=== PATIENT | female | born 1945 | race Caucasian/White ===

== ENCOUNTER → 2022-06-08 | Outpatient (CLI) | payer BC, MEDICARE ==
[2022-06-08 10:35] LABS: INR 0.9 (<1.2); Partial Thromboplastin Time 23.3 sec (22.0-30.0); Prothrombin Time 9.9 sec (9.0-12.0)
[2022-06-08 18:05] LABS: HCT 42.7 % (37.2-46.3); HGB 13.3 g/dL (12.0-15.0); MCH 28.3 pg (27.0-32.0); MCHC 31.1 g/dL (32.0-37.0); MCV 90.9 fL (80.0-97.0); Mean Platelet Volume 12.3 fL (9.5-12.2); NRBC Per 100 WBC 0 /100 WBCS (0.0-0.0); Platelet Count 362 X 10*3/uL (140-440); RDW 14.1 % (11.5-14.5); WBC 9.12 X 10*3/uL (4.50-10.00)
[2022-06-08 18:08] LABS: Appearance,Urine Clear (Clear); Bilirubin,Urine Negative (Negative); Blood,Urine Negative (Negative); Color,Urine Dark Yellow (Yellow); Ketones,Urine Negative (Negative); Nitrite,Urine Negative (Negative); PH, Urine 7.5 (5.0-8.0); Specific Gravity,Urine 1.018 (1.001-1.030); Urobilinogen,Urine 0.2 (0.2,1.0)
[2022-06-08 18:12] LABS: African American GFR (CKD) 107.5 (60.0-200.0); Albumin 4.5 g/dL (3.8-4.9); Albumin/Globulin Ratio 1.52 (1.60-3.17); Anion Gap 11.9 mmol/L (10.00-18.00); BUN/Creat Ratio 28.68 Ratio (12.00-20.00); Blood Urea Nitrogen 15.6 mg/dL (9.0-27.0); Calcium 9.9 mg/dL (8.7-10.3); Carbon Dioxide 27.3 mmol/L (20.0-27.5); Non-African American GFR(CKD) 92.7 (60.0-200.0); Potassium 3.9 mmol/L (3.5-5.5); Total Bilirubin 0.3 mg/dL (0.30-1.20); Total Protein 7.5 g/dL (6.2-8.2)
[2022-06-08 18:38] LABS: Bacteria,Urine Trace /HPF (None Seen)
== END | disposition home or self-care (01) ==
LOC: LABPAT 09:27
PROVIDERS: ATTEND Orthopaedic Surgery
DX: Z01.812 Encounter for preprocedural laboratory examination (principal); M16.12 Unilateral primary osteoarthritis, left hip
CPT/HCPCS: 80053; 81001; 85027; 85610; 85730; 87070; 93005

== ENCOUNTER 2022-06-13 10:11 | Day surgery (SDC) | payer BC, MEDICARE, OTHER ==
[2022-06-08 12:49] VITALS: BMI 33.3
[~2022-06-13 10:11] MED LIST: ACETAMINOPHEN TAB 500 MG TAB PO PRN; GABAPENTIN 300 MG CAP PO PRN; HYDROmorphone 0.5 MG/0.5 ML SYRINGE IVP PRN; LIDOCAINE 1% (10MG/ML) FOR IV START INTRADERMA PRN; MELOXICAM 7.5 MG TAB PO PRN; MIDAZOLAM 2 MG/2 ML VIAL IV PRN; ONDANSETRON 4 MG/2 ML VIAL IVP ONE; TRANEXAMIC ACID IN NACL,ISO-OS 1,000 MG in SALINE 1 100ML.BAG IVPB PRN
[2022-06-13] MEDS: LACTATED RINGERS 1,000 ML IV SCH (10:45)
[2022-06-13] MEDS: DEXAMETHASONE SOD PHOSPHATE 4 MG/ML 1 ML VIAL IV ONE ×2 (11:08→15:44)
--- NOTE | 2022-06-13 11:15 | P.ANPRN ---
Procedure Note - Anesthesia - Nerve Block Performed Left Anselmo Single Time Out Performed: Yes Date of Procedure: 06/13/22 Procedure Start Time: 11:03 Procedure Stop Time: 11:10 Location of Patient: PreOp Indication: Requested by Surgeon Specifically requested for management of pain by DrAinsley: Jayme Barahona Sedation Type: Sedate with meaningful contact maintained Preparation: Sterile Prep Position: Supine Needle Types: Pajunk Needle Gauge: 21 Ultrasound used to visualize needle placement: Yes Ultrasound used to observe medication spread: Yes Injectate: 0.5% Ropivacaine (see comment for volume) (30 ml + 4mg dexamethasone) Blood Aspirated: No Pain Paresthesia on Injection Noted: No Resistance on Injection: Normal Image Stored and Saved: Yes Events: Uneventful and Well Tolerated
[2022-06-13] MEDS ORDERED: HYDROmorphone 0.5 MG/0.5 ML SYRINGE IVP PRN ×3 (11:37)
[2022-06-13] MEDS ORDERED: MAGNESIUM HYDROXIDE 2,400 MG/10 ML CUP PO PRN (11:37)
[2022-06-13] MEDS ORDERED: ONDANSETRON 4 MG/2 ML VIAL IVP PRN (11:37)
[2022-06-13] MEDS ORDERED: NALOXONE 0.4 MG/ML 1 ML VIAL IV PRN (11:37)
[2022-06-13] MEDS ORDERED: HYDROcodone/APAP 7.5-325MG 1 EACH TAB PO PRN (11:41)
[2022-06-13] MEDS ORDERED: fentaNYL (PF) 50 MCG/ML 2 ML AMP ONE (11:46)
[2022-06-13] MEDS ORDERED: DEXAMETHASONE SOD PHOSPHATE 4 MG/ML 1 ML VIAL ONE (11:46)
[2022-06-13] MEDS ORDERED: ROPIVACAINE 5 MG/ML 30 ML VIAL ONE (11:46)
[2022-06-13] MEDS ORDERED: TRANEXAMIC ACID IN NACL,ISO-OS 1,000 MG/100 ML BAG ONE (11:46)
[2022-06-13] MEDS ORDERED: PHENYLEPHRINE-0.9% NACL SYG 1,000 MCG/10 ML SYRINGE ONE (11:46)
[2022-06-13] MEDS ORDERED: MIDAZOLAM 2 MG/2 ML VIAL ONE (11:46)
[2022-06-13] MEDS ORDERED: PROPOFOL 10 MG/ML 20 ML VIAL IV ONE (11:46)
[2022-06-13] MEDS ORDERED: ceFAZolin 1,000 MG in SODIUM CHLORIDE 0.9% 1,000 ML IRRIGATION ONE (11:51)
[2022-06-13] MEDS ORDERED: ROPIVACAINE 5 MG/ML 30 ML VIAL MISCELLANE ONE ×2 (12:22→12:59)
[2022-06-13] MEDS ORDERED: LACTATED RINGERS 1,000 ML IV ONE (12:56)
--- NOTE | 2022-06-13 13:05 | P.OP ---
Date of Procedure: 06/13/22 Preoperative Diagnosis: Severe osteoarthritis left hip Postoperative Diagnosis: Severe osteoarthritis left hip Procedure(s) Performed: Left total arthroplasty with a direct anterior approach Implants: [employer] Polarstem standard size 2 [employer] R3, 3 hole hemispherical acetabular shell, 48 mm [employer] Reflection 6.5 mm cancellus screw, 20 mm 2 [employer] R3, XLPE 20 acetabular liner [employer]hew Oxinium femoral head 32 m, +4 All components were press-fit. The articulation is Oxinium on polyethylene. Anesthesia: spinal Surgeon: Jayme Barahona Credit Collections Specialist #1: Latasha Burgos Estimated Blood Loss (ml): 400 Pathology: other (Femoral head) Condition: stable Disposition: PACU Indications for Procedure: After failure of conservative treatment we discussed the surgical and nonsurgical treatment options at length. Patient wishes to proceed with a total hip arthroplasty with a direct anterior approach. Complications specific to this procedure were discussed at length, including but not limited to infection, leg length discrepancy, dislocation, nerve injury, and fracture. Covid-19 was also discussed at length with the patient, and they are aware of the current policies and procedures. The patient was given the option of delaying surgery, but they elect to proceed knowing these risks. Patient is aware of all these complications and informed consent was obtained Operative Findings: The operative findings are consistent with severe osteoarthritis of the left hip Description of Procedure: The patient was seen and evaluated in the preoperative area and the consent was reviewed. The operative site was marked with a skin marker. The patient verified the procedure and operative site. A VANDANA block was placed by ravin hinkle in the preoperative area. The patient was then brought to the operating room and given preoperative antibiotics intravenously. 1 g of Tranexamic acid was also given intravenously. A spinal anesthetic was administered by the anesthesia department. The patient was then placed on the Latham table with the bony prominences well-padded. The hip area was then prepped with a ChloraPrep solution and draped in the usual sterile fashion. A universal timeout was then performed, which confirmed the patient's name, surgical site, ALLERGIES, and procedure being performed on the consent. Next the incision site was located at 1 cm distal and 4 cm lateral to the anterior superior iliac spine. The skin and subcutaneous tissues were sharply incised. Incision was carefully dissected down to the fascia overlying the tensor fascia juan manuel muscle. This fascia was then incised in line with the muscle fibers. Care was taken to stay laterally in order to avoid injuring the lateral femoral cutaneous nerve. Next, using blunt finger dissection, the tensor fascia juan manuel muscle was dissected off its investing fascia. The muscle was then carefully retracted laterally with a cobra retractor over the lateral neck of the femur. Next, the circumflex vessels were identified and cauterized using the Aquamantis device. The anterior hip capsule was then exposed. The capsule was then opened and an inverted T fashion. The retractors were then placed intracapsularly. The retractors were maintained intracapsular throughout the procedure. The proximal femur was then visualized. Fluoroscopic x-rays were then taken in order to evaluate the preoperative leg lengths. A small amount of traction was placed on the leg. The femoral neck was then osteotomized at the appropriate level above the lesser trochanter. A small wedge of bone was then removed from the remaining femoral head. Next, using a corkscrew the femoral head was removed from the acetabulum. On gross visual inspection, the femoral head had complete loss of articular cartilage and multiple periarticular osteophytes. The femoral head was then measured. Attention was then turned to the acetabulum. The acetabulum was exposed and any remaining labrum was excised. Sequential reaming of the acetabulum was performed using fluoroscopic guidance until there was a good bed of bleeding cancellus bone. When the appropriate size was reached, a trial was then placed. The position and fit of the trial was checked with fluoroscopy. The trial was then removed. Then, using fluoroscopic guidance, the final implant was impacted at 20 of anteversion and 40 of abduction, and fully seated in the acetabulum. 2 screws were then placed in the acetabulum. Again fluoroscopy was used to check position of the screws. Next, the liner was then impacted, with a 20 elevated liner located in the anterior superior quadrant. Component locking was confirmed. Attention was then directed to the femur. With the aid of the Latham table, the femur was externally rotated to approximately 130, extended, and adducted under the opposite leg. A side hook was then placed under the proximal femur, and the side hook elevator was used to elevate the proximal femur while releasing the capsule. Retractors were then placed. A capsular release was performed, as well as a release of the conjoined tendon, which afforded excellent visualization of the proximal femur. Next, a box osteotome was used to lateralize the proximal femur. A kiss setter hand was then used to locate the femoral canal. Sequential broaching was then performed with appropriate size which afforded excellent fixation in the proximal femur. A trial was then placed with appropriate head and neck, and the hip was gently reduced with the aid of the Latham table. Fluoroscopy was then used to check position of the components, as well as to evaluate the leg lengths and offset. The leg lengths and offset were measured as closely as possible to ensure stability of the hip. The hip was then gently dislocated and the trials were then removed. Final implants were then impacted and the hip was again reduced. Final fluoroscopic x-rays confirmed that the components were in anatomic position. The leg lengths and offset were measured and were found to coincide with the trial measurements. The hip was also taken through range of motion, and found to be stable. The hip was then copiously irrigated with antibiotic solution with pulsatile lavage. The hip was then irrigated with Irrisept solution. The soft tissues were then injected with a ropivacaine solution. A second dose of 1 g of Tranexamic acid was also given intravenously. The fascia was then closed with 2-0 strata fix suture. The subcutaneous tissue was closed with 3-0 Vicryl. The subcuticular tissue was closed with 3-0 strata fix suture. The skin was then closed with Exofin skin glue. After the glue and dried, and Optifoam silver impregnated dressing was applied. The patient was then transferred to the recovery room in stable condition. The dental office assistant GINA Garcia was required due to the complexity of surgery, and the need for skilled operating room surgical technician for positioning, draping, exposure, retraction, and closure of the wound.
[2022-06-13] MEDS ORDERED: SODIUM CHLORIDE 0.9% 1,000 ML IV ONE (14:40)
[2022-06-13] MEDS: SODIUM CHLORIDE 0.9% 1,000 ML IV SCH (15:44)
--- NOTE | 2022-06-13 16:06 | XR ---
EXAMINATION TYPE: XR Hip Limited LT, XR Hip Limited LT DATE OF EXAM: 06/13/2022 COMPARISON: NONE HISTORY: 76-year-old female anterior total left hip replacement FINDINGS: Images showing placement of left total hip arthroplasty for underlying severe degenerative change, po ssibly sequela of AVN. FLUOROSCOPY Fluoroscopy time of 38 seconds was used during left hip total arthroplasty. 4 image/s document/s the procedure. IMPRESSION: Intraoperative fluoroscopy as above.
[2022-06-13] MEDS: HYDROcodone/APAP 7.5-325MG 1 EACH TAB PO PRN ×2 (17:01→23:10)
[2022-06-13] MEDS ORDERED: SENNOSIDES-DOCUSATE SODIUM 1 EACH TAB PO SCH (21:00)
[2022-06-13] MEDS: ASPIRIN 325 MG TAB PO SCH (22:11)
[2022-06-14] MEDS: SODIUM CHLORIDE 0.9% 1,000 ML IV SCH (02:47)
[2022-06-14] MEDS: HYDROcodone/APAP 7.5-325MG 1 EACH TAB PO PRN ×2 (05:47→13:02)
[2022-06-14] MEDS: LACTATED RINGERS 1,000 ML IV SCH (06:44)
--- NOTE | 2022-06-14 07:44 | P.DS ---
Providers Expected date of discharge: 06/14/22 Attending physician: Jayme Barahona Consults: 06/13/22 11:37 Consult Physician Routine Consulting Provider: Feliberto Ladd Consult Reason/Comments: medical management Do you want consulting provider notified?: Yes Primary care physician: Sally Hernandez Charbal - Discharge Diagnosis(es) (1) Primary localized osteoarthritis of left hip Current Visit: Yes Status: Acute (2) Status post total replacement of left hip Current Visit: Yes Status: Acute Hospital Course: This is a 76-year-old female with known history of degenerative arthritis of the left hip. The patient presents for evaluation. After discussion and consideration patient elects to proceed with total hip arthroplasty with direct anterior approach. The patient is seen preoperatively by primary care physician and cleared for surgery. Patient is admitted to [facility] on 06/13/2022 for total hip arthroplasty with direct anterior approach. The procedure is performed without complication or sequelae. The patient is doing well postoperatively. Labs and vital signs are stable on day of discharge. On day of discharge patient's hip incision is healing well. There is minimal erythema. There is no drainage noted at this time. There is minimal soft tissue swelling to the hip and thigh. Patient has full foot and ankle motion without difficulty or pain. Neurovascular status to the lower extremity is intact. Patient is discharged to home in good condition. Please see med rec for accurate list of home medications. Patient Condition at Discharge: Good Plan - Discharge Summary Discharge Rx Participant: Yes New Discharge Prescriptions: New Aspirin 325 mg PO BID #60 tab Sennosides [Senokot] 2 tab PO DAILY PRN #60 tablet PRN Reason: Constipation HYDROcodone/APAP 7.5-325MG [[place] 7.5-325] 1 - 2 tab PO Q6H PRN #32 tab PRN Reason: Pain No Action traMADol HCl [Ultram] 12.5 mg PO BID Cyclobenzaprine [Flexeril] 10 mg PO DAILY Ibuprofen [Motrin] 800 mg PO Q8H PRN PRN Reason: Pain Multivit with Calcium,Iron,Min [Women's Multivitamin] 1 each PO DAILY Discharge Medication List Cyclobenzaprine [Flexeril] 10 mg PO DAILY 06/08/22 [History] Ibuprofen [Motrin] 800 mg PO Q8H PRN 06/08/22 [History] Multivit with Calcium,Iron,Min [Women's Multivitamin] 1 each PO DAILY 06/08/22 [History] traMADol HCl [Ultram] 12.5 mg PO BID 06/08/22 [History] Aspirin 325 mg PO BID #60 tab 06/13/22 [Rx] HYDROcodone/APAP 7.5-325MG [[place] 7.5-325] 1 - 2 tab PO Q6H PRN #32 tab 06/13/22 [Rx] Sennosides [Senokot] 2 tab PO DAILY PRN #60 tablet 06/13/22 [Rx] Follow up Appointment(s)/Referral(s): Jayme Barahona DO [Doctor of Osteopathic Medicine] - 2 Weeks Activity/Diet/Wound Care/Special Instructions: Weightbearing as tolerated with walker. Leave dressing intact. Dressing may be removed by home care nurse or by patient in 7 days. Then change dressing twice daily until follow up. May shower with initial dressing intact and after removal. If dressing become saturated, please remove. Please take aspirin 325mg twice daily for 30 days to prevent blood clots. Recommend use of compression stockings daily until follow up to help prevent swelling and blood clots. May remove at night before sleeping. Please follow-up with [facility] in 2 weeks and call with any questions or concerns, . Discharge Disposition: HOME WITH HOME HEALTH SERVICES
[2022-06-14 07:49] VITALS: BP 142/71; PULSE 82; RESP 16; TEMP 97.9
[2022-06-14] MEDS: ASPIRIN 325 MG TAB PO SCH (08:02)
[2022-06-14 09:42] LABS: HGB 10.6 g/dL (12.0-15.0); MCH 27.8 pg (27.0-32.0); MCHC 31.2 g/dL (32.0-37.0); MCV 89.2 fL (80.0-97.0); Mean Platelet Volume 11.5 fL (9.5-12.2); NRBC Per 100 WBC 0 /100 WBCS (0.0-0.0); Platelet Count 337 X 10*3/uL (140-440); RBC 3.81 X 10*6/uL (4.10-5.20); RDW 13.8 % (11.5-14.5); WBC 15.75 X 10*3/uL (4.50-10.00)
--- NOTE | 2022-06-14 09:44 | P.CONS ---
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 Today is postop day #1. Medical consult was requested for marking medical management. Patient lying in bed feeling comfortable, pain controlled. She denies any chest pain or dyspnea, no abdominal pain no vomiting or diarrhea. No hepatic complaints. No headache dizziness weakness or numbness. Vitas looks stable, afebrile. CBC from 06/08/22 is reviewed and was unremarkable, as well as liver enzymes and BNP were unremarkable. No labs done this morning Review of Systems Review of systems CONSTITUTIONAL: No fever, no malaise, no fatigue. HEENT: No recent visual problems or hearing problems. Denied any sore throat. CARDIOVASCULAR: No orthopnea, PND, no palpitations, no syncope. PULMONARY: No shortness of breath, no cough, no hemoptysis. GASTROINTESTINAL: No diarrhea, no nausea, no vomiting, no abdominal pain. Normoactive bowel sounds. NEUROLOGICAL: No headaches, no weakness, no numbness. HEMATOLOGICAL: Denies any bleeding or petechiae. GENITOURINARY: Denies any burning micturition, frequency, or urgency. MUSCULOSKELETAL/RHEUMATOLOGICAL: Denies any joint pain, swelling, or any muscle pain. ENDOCRINE: Denies any polyuria or polydipsia. Past Medical History Past Medical History: Osteoarthritis (OA) History of Any Multi-Drug Resistant Organisms: None Reported Past Surgical History: Appendectomy, Section, Cholecystectomy, Hysterectomy Additional Past Surgical History / Comment(s): PAIN CLINIC PROCEDURE Past Anesthesia/Blood Transfusion Reactions: Postoperative Nausea & Vomiting (PONV) Past Psychological History: No Psychological Hx Reported Smoking Status: Never smoker Past Alcohol Use History: None Reported Past Drug Use History: None Reported - Past Family History Mother Family Medical History: No Reported History Medications and Allergies Home Medications Medication Instructions Recorded Confirmed Type Cyclobenzaprine [Flexeril] 10 mg PO DAILY 06/08/22 06/13/22 History Ibuprofen [Motrin] 800 mg PO Q8H PRN 06/08/22 06/13/22 History Multivit with Calcium,Iron,Min 1 each PO DAILY 06/08/22 06/13/22 History [Women's Multivitamin] traMADol HCl [Ultram] 12.5 mg PO BID 06/08/22 06/13/22 History Aspirin 325 mg PO BID #60 tab 06/13/22 Rx HYDROcodone/APAP 7.5-325MG [[place] 1 - 2 tab PO Q6H PRN #32 tab 06/13/22 Rx 7.5-325] Sennosides [Senokot] 2 tab PO DAILY PRN #60 tablet 06/13/22 Rx Allergies Allergy/AdvReac Type Severity Reaction Status Date / Time No Known Allergies Allergy Verified 06/13/22 10:49 Physical Exam Vitals: Vital Signs Temp Pulse Pulse Pulse Resp BP BP 06/14/22 06:41 97.9 F 82 16 142/71 06/14/22 02:38 98.0 F 80 15 116/69 06/13/22 20:00 97.5 F L 86 15 126/77 06/13/22 15:51 97.8 F 91 18 122/76 06/13/22 14:45 74 16 132/64 06/13/22 14:25 75 16 140/74 06/13/22 14:10 79 16 139/73 06/13/22 13:55 80 18 112/58 06/13/22 13:40 81 12 114/62 06/13/22 13:25 97.6 F 82 16 102/57 06/13/22 11:15 89 20 129/61 06/13/22 10:39 98.3 F 100 20 149/71 Pulse Ox 06/14/22 06:41 94 L 06/14/22 02:38 94 L 06/13/22 20:00 93 L 06/13/22 15:51 94 L 06/13/22 14:45 97 06/13/22 14:25 100 06/13/22 14:10 99 06/13/22 13:55 100 06/13/22 13:40 100 06/13/22 13:25 99 06/13/22 11:15 96 06/13/22 10:39 96 Intake and Output 06/13/22 06/14/22 06/14/22 22:59 06:59 14:59 Other: Voiding Method Diaper Incontinent # Voids 1 1 GENERAL: The patient is alert and oriented x3, not in any acute distress. Well developed, well nourished. HEENT: Pupils are round and equally reacting to light. EOMI. No scleral icterus. No conjunctival pallor. Normocephalic, atraumatic. No pharyngeal erythema. No thyromegaly. CARDIOVASCULAR: S1 and S2 present. No murmurs, rubs, or gallops. PULMONARY: Chest is clear to auscultation, no wheezing or crackles. ABDOMEN: Soft, nontender, nondistended, normoactive bowel sounds. No palpable organomegaly. MUSCULOSKELETAL: No joint swelling or deformity. -EXTREMITIES: No cyanosis, clubbing, or pedal edema. Left hip wound was dressed in a Place, breast exam deferred to surgery team NEUROLOGICAL: Gross neurological examination did not reveal any focal deficits. SKIN: No rashes. no petechiae. Assessment and Plan Assessment: Severe left hip osteoarthritis status post left total hip arthroplasty today postop day #1 Plan: Pain management and DVT prophylaxis per surgery team Monitor vitals. Monitor hemoglobin We recommend patient follow up with PCP Dr. Zavala in one week after discharge, patient was instructed with the same and she agrees. Thank you for consulting us
[2022-06-14 10:53] LABS: Basophils # (A) 0.04 X 10*3/uL (0.00-0.10); Basophils % (A) 0.3 %; Eosinophils # (A) 0 X 10*3/uL (0.04-0.35); Eosinophils % (A) 0 %; Immature Grans, Automated 0.3 %; Lymphocytes % (A) 12.1 %; Monocytes # (A) 1.56 X 10*3/uL (0.20-1.00); Monocytes % (A) 9.9 %; Neutrophils % (A) 77.4 %
== END 2022-06-14 13:15 | disposition home health service (06) ==
LOC: OR 10:11 → 4SSUR 13:30 → OR 06-14 13:15
PROVIDERS: ATTEND Orthopaedic Surgery
DX: M16.52 Unilateral post-traumatic osteoarthritis, left hip (principal); V40.0XXA Car driver injured in collision with pedestrian or animal in nontraffic accident, initial encounter; Z79.1 Long term (current) use of non-steroidal anti-inflammatories (NSAID); Z79.891 Long term (current) use of opiate analgesic; M87.052 Idiopathic aseptic necrosis of left femur; E66.01 Morbid (severe) obesity due to excess calories; Z68.43 Body mass index [BMI] 50.0-59.9, adult; G89.18 Other acute postprocedural pain
CPT/HCPCS: 97161; 97535; 97166; 64447; 86900; 86901; 85025; 86850; 88300; 73501; 27130; 76942; C1776; J2250; J1100; J0690 ×3; J2405; J3010; J2795; J2370; J2704; J1170

== ENCOUNTER 2023-01-01 05:39 | Day surgery (SDC) | payer BC, MEDICARE ==
[~2023-01-01 05:39] MED LIST changes: -HYDROmorphone 0.5 MG/0.5 ML SYRINGE IVP PRN; -LIDOCAINE 1% (10MG/ML) FOR IV START INTRADERMA PRN; -MIDAZOLAM 2 MG/2 ML VIAL IV PRN; -ONDANSETRON 4 MG/2 ML VIAL IVP ONE; +TRANEXAMIC 1,000 MG/100ML-NACL 1,000 MG in SALINE 1 100ML.BAG IVPB PRN; -TRANEXAMIC ACID IN NACL,ISO-OS 1,000 MG in SALINE 1 100ML.BAG IVPB PRN
[2023-01-01] MEDS ORDERED: LIDOCAINE 1% (10MG/ML) FOR IV START INTRADERMA PRN (05:52)
[2023-01-01] MEDS ORDERED: DEXAMETHASONE SOD PHOSPHATE 4 MG/ML 1 ML VIAL IV ONE (05:52)
[2023-01-01] MEDS ORDERED: droPERidol 5 MG/2 ML VIAL IVP ONE (05:52)
[2023-01-01] MEDS ORDERED: ONDANSETRON 4 MG/2 ML VIAL IVP ONE (05:52)
[2023-01-01] MEDS: LACTATED RINGERS 1,000 ML IV SCH (06:15)
[2023-01-01] MEDS ORDERED: MIDAZOLAM 2 MG/2 ML VIAL IVP ONE (06:35)
[2023-01-01] MEDS ORDERED: fentaNYL (PF) 50 MCG/ML 2 ML AMP IVP ONE (06:37)
[2023-01-01] MEDS ORDERED: MIDAZOLAM 2 MG/2 ML VIAL ONE (06:55)
[2023-01-01] MEDS ORDERED: TRANEXAMIC 1,000 MG/100ML-NACL PREMIX BAG ONE (06:55)
[2023-01-01] MEDS ORDERED: DEXAMETHASONE SOD PHOSPHATE 4 MG/ML 1 ML VIAL ONE (06:55)
[2023-01-01] MEDS ORDERED: PHENYLEPHRINE-0.9% NACL SYG 1,000 MCG/10 ML SYRINGE ONE (06:55)
[2023-01-01] MEDS ORDERED: SODIUM CHLORIDE 0.9% (PF) 10 ML VIAL ONE (06:55)
[2023-01-01] MEDS ORDERED: PROPOFOL 10 MG/ML 20 ML VIAL IV ONE (06:55)
[2023-01-01] MEDS ORDERED: fentaNYL (PF) 50 MCG/ML 2 ML AMP ONE (06:55)
[2023-01-01] MEDS ORDERED: ROPIVACAINE 5 MG/ML 30 ML VIAL ONE (06:55)
[2023-01-01] MEDS ORDERED: ceFAZolin 1,000 MG in SODIUM CHLORIDE 0.9% 1,000 ML IRRIGATION ONE (07:00)
[2023-01-01] MEDS ORDERED: HYDROmorphone 0.5 MG/0.5 ML SYRINGE IVP PRN ×4 (07:00→08:26)
[2023-01-01] MEDS ORDERED: ROPIVACAINE 5 MG/ML 30 ML VIAL MISCELLANE ONE ×2 (07:03→07:59)
--- NOTE | 2023-01-01 08:02 | P.ANPRN ---
Procedure Note - Anesthesia - Nerve Block Performed Right Anselmo Time Out Performed: Yes (:34) Date of Procedure: 01/01/23 Procedure Start Time: Procedure Stop Time: :39 Location of Patient: PreOp Indication: Acute Post-Operative Pain, Requested by Surgeon (Dr fung) Sedation Type: Sedate with meaningful contact maintained Preparation: Sterile Prep Position: Supine Catheter: None Needle Types: Pajunk Needle Gauge: 21 Ultrasound used to visualize needle placement: Yes Ultrasound used to observe medication spread: Yes Injectate: 0.5% Ropivacaine (see comment for volume) (20cc + decadron 4mg + 5cc PF normal saline) Blood Aspirated: No Pain Paresthesia on Injection Noted: No Resistance on Injection: Normal Image Stored and Saved: Yes Events: Uneventful and Well Tolerated
[2023-01-01] MEDS ORDERED: LACTATED RINGERS 1,000 ML IV ONE (08:06)
--- NOTE | 2023-01-01 08:06 | P.OP ---
Date of Procedure: 01/01/23 Preoperative Diagnosis: Severe osteoarthritis right hip Postoperative Diagnosis: Severe osteoarthritis right hip Procedure(s) Performed: Right total hip arthroplasty with a direct anterior approach Implants: [employer]hew Polarstem standard size 3 Travis [employer]hew R3, 3 hole hemispherical acetabular shell, 48 mm [employer]hew Reflection 6.5 mm cancellus screw, 20 mm 2 [employer] R3, XLPE 20 acetabular liner Tarvis [employer] Nephew Oxinium femoral head 32 m, +0 All components were press-fit. The articulation is Oxinium on polyethylene. Anesthesia: spinal Surgeon: Jayme Barahona Staff Readiness Officer #1: Latasha Burgos Estimated Blood Loss (ml): 200 Pathology: none sent Condition: stable Disposition: PACU Indications for Procedure: After failure of conservative treatment we discussed the surgical and nonsurgical treatment options at length. Patient wishes to proceed with a total hip arthroplasty with a direct anterior approach. Complications specific to this procedure were discussed at length, including but not limited to infection, leg length discrepancy, dislocation, nerve injury, and fracture. Covid-19 was also discussed at length with the patient, and they are aware of the current policies and procedures. The patient was given the option of delaying surgery, but they elect to proceed knowing these risks. Patient is aware of all these complications and informed consent was obtained Operative Findings: The operative findings are consistent with severe osteoarthritis of the right hip Description of Procedure: The patient was seen and evaluated in the preoperative area and the consent was reviewed. The operative site was marked with a skin marker. The patient verified the procedure and operative site. A VANDANA block was placed by anesthe brandon in the preoperative area. The patient was then brought to the operating room and given preoperative antibiotics intravenously. 1 g of Tranexamic acid was also given intravenously. A spinal anesthetic was administered by the anesthesia department. The patient was then placed on the [place] table with the bony prominences well-padded. The hip area was then prepped with a ChloraPrep solution and draped in the usual sterile fashion. A universal timeout was then performed, which confirmed the patient's name, surgical site, ALLERGIES, and procedure being performed on the consent. Next the incision site was located at 1 cm distal and 4 cm lateral to the anterior superior iliac spine. The skin and subcutaneous tissues were sharply incised. Incision was carefully dissected down to the fascia overlying the tensor fascia juan manuel muscle. This fascia was then incised in line with the muscle fibers. Care was taken to stay laterally in order to avoid injuring the lateral femoral cutaneous nerve. Next, using blunt finger dissection, the tensor fascia juan manuel muscle was dissected off its investing fascia. The muscle was then carefully retracted laterally with a cobra retractor over the lateral neck of the femur. Next, the circumflex vessels were identified and cauterized using the Aquamantis device. The anterior hip capsule was then exposed. The capsule was then opened and an inverted T fashion. The retractors were then placed intracapsularly. The retractors were maintained intracapsular throughout the procedure. The proximal femur was then visualized. Fluoroscopic x-rays were then taken in order to evaluate the preoperative leg lengths. A small amount of traction was placed on the leg. The femoral neck was then osteotomized at the appropriate level above the lesser trochanter. A small wedge of bone was then removed from the remaining femoral head. Next, using a corkscrew the femoral head was removed from the acetabulum. On gross visual inspection, the femoral head had complete loss of articular cartilage and multiple periarticular osteophytes. The femoral head was then measured. Attention was then turned to the acetabulum. The acetabulum was exposed and any remaining labrum was excised. Sequential reaming of the acetabulum was performed using fluoroscopic guidance until there was a good bed of bleeding cancellus bone. When the appropriate size was r eached, a trial was then placed. The position and fit of the trial was checked with fluoroscopy. The trial was then removed. Then, using fluoroscopic guidance, the final implant was impacted at 20 of anteversion and 40 of abduction, and fully seated in the acetabulum. 2 screws were then placed in the acetabulum. Again fluoroscopy was used to check position of the screws. Next, the liner was then impacted, with a 20 elevated liner located in the anterior superior quadrant. Component locking was confirmed. Attention was then directed to the femur. With the aid of the [place] table, the femur was externally rotated to approximately 130, extended, and adducted under the opposite leg. A side hook was then placed under the proximal femur, and the side hook elevator was used to elevate the proximal femur while releasing the capsule. Retractors were then placed. A capsular release was performed, as well as a release of the conjoined tendon, which afforded excellent visualization of the proximal femur. Next, a box osteotome was used to lateralize the proximal femur. A hand clerical verifier was then used to locate the femoral canal. Sequential broaching was then performed with appropriate size which afforded excellent fixation in the proximal femur. A trial was then placed with appropriate head and neck, and the hip was gently reduced with the aid of the [place] table. Fluoroscopy was then used to check position of the components, as well as to evaluate the leg lengths and offset. The leg lengths and offset were measured as closely as possible to ensure stability of the hip. The hip was then gently dislocated and the trials were then removed. Final implants were then impacted and the hip was again reduced. Final fluoroscopic x-rays confirmed that the components were in anatomic position. The leg lengths and offset were measured and were found to coincide with the trial measurements. The hip was also taken through range of motion, and found to be stable. The hip was then copiously irrigated with antibiotic solution with pulsatile lavage. The hip was then irrigated with Irrisept solution. The soft tissues were then injected with a ropivacaine solution. A second dose of 1 g of Tranexamic acid was also given intravenously. The fascia was then closed with 2-0 strata fix suture. The subcutaneous tissue was closed with 3-0 Vicryl. The subcuticular tissue was closed with 3-0 strata fix suture. The skin was then closed with Exofin skin glue. After the glue and dried, and Optifoam silver impregnated dressing was applied. The patient was then transferred to the recovery room in stable condition. The exceptional children teacher assistant GINA Garcia was required due to the complexity of surgery, and the need for skilled assistant professor surgical technology for positioning, draping, exposure, retraction, and closure of the wound.
[2023-01-01] MEDS ORDERED: MAGNESIUM HYDROXIDE 2,400 MG/30 ML CUP PO PRN (08:26)
[2023-01-01] MEDS ORDERED: NALOXONE 0.4 MG/ML 1 ML VIAL IV PRN (08:26)
[2023-01-01] MEDS ORDERED: ONDANSETRON 4 MG/2 ML VIAL IVP PRN (08:26)
--- NOTE | 2023-01-01 08:39 | FL ---
Intraoperative/procedural fluoroscopic services were provided. Total fluoroscopy time is 40 seconds w ith a total of 2 submitted images to PACS. Please see the operative/procedural note for further detai ls. DAP: 3.6105 Gycm2
--- NOTE | 2023-01-01 09:02 | XR ---
EXAMINATION TYPE: XR Hip Limited RT DATE OF EXAM: 01/01/2023 8:53 AM INDICATION: Patient age:Female; 77 years old; Reason for study: Status post hip surgery, assess surgical alignment; COMPARISON: None. TECHNIQUE: The right hip was examined in the frontal and lateral projections and a AP pelvis. FINDINGS: Post arthroplasty changes, hardware is intact, alignment is appropriate. No evidence of fra cture. Postoperative changes of the soft tissues with subcutaneous gas. No evidence of any acute osse ous pathology or joint dislocation. IMPRESSION: Hip arthroplasty with hardware intact and in appropriate alignment. No acute fracture.
[2023-01-01] MEDS: HYDROcodone/APAP 7.5-325MG 1 EACH TAB PO PRN ×3 (13:21→23:16)
--- NOTE | 2023-01-01 15:16 | P.CONS ---
History of Present Illness - Reason for Consult Consult date: 01/01/23 Medical management, postop right hip arthroplasty - History of Present Illness This is a 77-year-old female who was admitted under orthopedic services underwent right total hip arthroplasty with Dr. Barahona today postop day 0. Patient is evaluated out of postop slightly lethargic although easily arousable currently maintained on 2 L via nasal cannula. Patient reports she follows with Dr. Zavala and underwent presurgical clearance for surgery and reports a past medical history of severe osteoarthritis and denies any other significant past medical history. On exam patient is afebrile currently maintained on 2 L and denies shortness of breath and recommend weaning FiO2. Patient to be given incentive spirometer and encouraged to continue using at least 10 times every hour while awake. Patient will be seen and evaluated by physical therapy in the a.m. and will review and resume home medications. Labs reviewed from presurgical clearance within normal limits. Review Of Systems: Constitutional: No fever, no chills, no night sweats. No weight change. No weakness, fatigue or lethargy. No daytime sleepiness. EENT: No headache. No blurred vision or double vision, no loss of vision. No loss of Hearing, no ringing in the ears, no dizziness. No nasal drainage or congestion. No epistaxis. No sore throat. Lungs: No shortness of breath, cough, no sputum production. No wheezing. Cardiovascular: No chest pain, no lower extremity edema. No palpitations. No paroxysmal nocturnal dyspnea. No orthopnea. No lightheadedness or dizziness. No syncopal episodes. Abdominal: No abdominal pain. No nausea, vomiting. No diarrhea. No constipation. No bloody or tarry stools.. No loss of appetite. Genitourinary: No dysuria, increased frequency, urgency. No urinary retention. Musculoskeletal: No myalgias. No muscle weakness, no gait dysfunction, no frequent falls. No back pain. No neck pain. Currently reports right hip and lower extremity numbness Integumentary: No wounds, no lesions. No rash or pruritus. No unusual bruising. No change in hair or nails. Neurologic: No aphasia. No facial droop. No change in mentation. No head injury. No headache. No paralysis. No paresthesia. Psychiatric: No depression. No anxiety. No mood swings. Endocrine: No abnormal blood sugars. No weight change. No excessive sweating or thirst. No cold intolerance. PHYSICAL EXAMINATION: GENERAL: The patient is alert and oriented x4, Well developed, well nourished. Obese HEENT: Pupils are round and equally reacting to light. EOMI. no scleral icterus. No conjunctival pallor. Normocephalic, atraumatic. No pharyngeal erythema. No thyromegaly. CARDIOVASCULAR: S1 and S2 muffled PULMONARY: diminished breath sounds bilaterally with no wheezing or rhonchi noted. ABDOMEN: soft. Nontender on exam. obese. non-distended, normoactive bowel sounds. No palpable organomegaly. MUSCULOSKELETAL: No joint swelling or deformity. EXTREMITIES: No cyanosis, clubbing, or pedal edema. Right hip surgical dressing is dry and intact with some swelling noted with no significant redness and soft and palpable NEUROLOGICAL: Gross neurological examination did not reveal any focal deficits. Diffuse weakness SKIN: No rashes. Assessment: Status post right total hip arthroplasty Obesity with a BMI of 39.5 History of osteoarthritis GI prophylaxis DVT prophylaxis Full code Plan: Patient is fresh postop day 0 right total hip arthroplasty with Dr. Barahona today Patient to be evaluated by physical therapy in the a.m. Encouraged incentive spirometer use at least 10 times every hour while awake Home medications reviewed and resumed patient mostly takes pain medications and will refer to orthopedics along with multivitamins which has been resumed We will continue to follow with orthopedics during hospitalization. Thank you kindly for this consultation. The impression and plan of care has been dictated by Ana James, nurse practitioner as directed. Dr. Wilberto MD I have performed a history and examination and MDM of this patient, discussed the same with the dictator, and agree with the dictator's assessment and plan as written ,documented as a scribe. Based on total visit time, I have performed more than 50% of the visit. Any additional findings or plans will be noted. Past Medical History Past Medical History: No Reported History History of Any Multi-Drug Resistant Organisms: None Reported Past Surgical History: Appendectomy, Section, Cholecystectomy, Hysterectomy, Joint Replacement Additional Past Surgical History / Comment(s): lft hip replacement Past Anesthesia/Blood Transfusion Reactions: Postoperative Nausea & Vomiting (PONV) Smoking Status: Never smoker Medications and Allergies Home Medications Medication Instructions Recorded Confirmed Type Cyclobenzaprine [Flexeril] 10 mg PO DAILY 06/08/22 01/01/23 History Ibuprofen [Motrin] 800 mg PO Q8H PRN 06/08/22 12/27/22 History Multivit with Calcium,Iron,Min 1 each PO DAILY 06/08/22 12/27/22 History [Women's Multivitamin] Aspirin 325 mg PO BID #60 tab 01/01/23 Rx HYDROcodone/APAP 7.5-325MG [[place] 1 - 2 tab PO Q6H PRN #32 tab 01/01/23 Rx 7.5-325] Sennosides [Senokot] 2 tab PO DAILY PRN #60 tablet 01/01/23 Rx traMADol HCL 50 mg PO Q6H 01/01/23 01/01/23 History Allergies Allergy/AdvReac Type Severity Reaction Status Date / Time No Known Allergies Allergy Verified 12/27/22 10:47 Physical Exam Vitals: Vital Signs Temp Pulse Pulse Resp BP BP BP 01/01/23 09:41 97.6 F 76 18 135/66 01/01/23 09:09 74 16 120/55 01/01/23 08:54 71 16 112/57 01/01/23 08:39 69 16 108/55 01/01/23 08:24 96.8 F L 77 16 100/53 01/01/23 06:42 86 18 129/63 01/01/23 06:11 97.8 F 93 18 154/71 Pulse Ox 01/01/23 09:41 96 01/01/23 09:09 98 01/01/23 08:54 97 01/01/23 08:39 98 01/01/23 08:24 93 L 01/01/23 06:42 97 01/01/23 06:11 93 L Intake and Output 12/31/22 01/01/23 01/01/23 22:59 06:59 14:59 Intake Total 400 751 Output Total 200 Balance 400 551 Intake: IV 400 751 Output: Estimated Blood Loss 200 Other: Weight 107.8 kg
[2023-01-01] MEDS: SODIUM CHLORIDE 0.9% 1,000 ML IV SCH ×2 (16:09→21:57)
[2023-01-01] MEDS: ASPIRIN 325 MG TAB PO SCH (20:50)
[2023-01-01] MEDS ORDERED: SENNOSIDES-DOCUSATE SODIUM 1 EACH TAB PO SCH (21:00)
[2023-01-02] MEDS: HYDROcodone/APAP 7.5-325MG 1 EACH TAB PO PRN ×2 (05:41→11:58)
[2023-01-02] MEDS: LACTATED RINGERS 1,000 ML IV SCH (05:43)
[2023-01-02 07:15] VITALS: BP 130/78; PULSE 73; RESP 15; TEMP 98.1
[2023-01-02] MEDS ORDERED: MULTIVITAMINS, THERA 1 EACH TAB PO SCH (09:00)
--- NOTE | 2023-01-02 09:14 | P.DS ---
Providers Expected date of discharge: 01/02/23 Attending physician: Jayme Barahona Consults: 01/01/23 08:26 Consult Physician Routine Consulting Provider: Shelby Fonseca Consult Reason/Comments: medical management Do you want consulting provider notified?: Yes Primary care physician: Sally Lara - Discharge Diagnosis(es) (1) Primary localized osteoarthritis of left hip Current Visit: No Status: Acute (2) Status post total replacement of left hip Current Visit: No Status: Acute Hospital Course: This is a 77-year-old female with known history of degenerative arthritis of the right hip. The patient presented for evaluation as an outpatient. After di scussion and consideration patient elects to proceed with total hip arthroplasty. The patient is seen preoperatively by Dr. Barahona and medically cleared for surgery by their primary care physician. Patient is admitted to [facility] on 01/01/2021 for total hip arthroplasty. The procedure is performed without complication or sequelae. The patient is doing well postoperatively. Labs and vital signs are stable on day of discharge. On day of discharge patient's hip incision is healing well. There is minimal erythema. There is no drainage noted at this time. There is minimal soft tissue swelling to the hip and thigh. Patient has full foot and ankle motion without difficulty or pain. Calf is soft and nontender to palpation. Neurovascular status to the right lower extremity is intact. Patient is discharged home in good condition. Please see [facility] rec for accurate list of home medications. Plan - Discharge Summary Discharge Rx Participant: No New Discharge Prescriptions: New Aspirin 325 mg PO BID #60 tab HYDROcodone/APAP 7.5-325MG [[place] 7.5-325] 1 - 2 tab PO Q6H PRN #32 tab PRN Reason: Pain Sennosides [Senokot] 2 tab PO DAILY PRN #60 tablet PRN Reason: Constipation No Action Cyclobenzaprine [Flexeril] 10 mg PO DAILY traMADol HCL 50 mg PO Q6H Ibuprofen [Motrin] 800 mg PO Q8H PRN PRN Reason: Pain Multivit with Calcium,Iron,Min [Women's Multivitamin] 1 each PO DAILY Discharge Medication List Cyclobenzaprine [Flexeril] 10 mg PO DAILY 06/08/22 [History] Ibuprofen [Motrin] 800 mg PO Q8H PRN 06/08/22 [History] Multivit with Calcium,Iron,Min [Women's Multivitamin] 1 each PO DAILY 06/08/22 [History] Aspirin 325 mg PO BID #60 tab 01/01/23 [Rx] HYDROcodone/APAP 7.5-325MG [[place] 7.5-325] 1 - 2 tab PO Q6H PRN #32 tab 01/01/23 [Rx] Sennosides [Senokot] 2 tab PO DAILY PRN #60 tablet 01/01/23 [Rx] traMADol HCL 50 mg PO Q6H 01/01/23 [History] Follow up Appointment(s)/Referral(s): Marco Zavala MD [Primary Care Provider] - 1 Week Jayme Barahona DO [Doctor of Osteopathic Medicine] - 01/12/23 10:10 am Activity/Diet/Wound Care/Special Instructions: Weightbearing as tolerated with walker. Leave dressing intact. Dressing may be removed by home care nurse or by patient in 7 days. Then change dressing twice daily until follow up. May shower with initial dressing intact and after removal. If dressing become saturated, please remove. Please take aspirin 325mg twice daily for 30 days to prevent blood clots. Recommend use of compression stockings daily until follow up to help prevent swelling and blood clots. May remove at night before sleeping. Please follow-up with [facility] in 2 weeks and call with any questions or concerns, . Discharge Disposition: HOME WITH HOME HEALTH SERVICES
[2023-01-02] MEDS: ASPIRIN 325 MG TAB PO SCH (09:53)
[2023-01-02 14:14] LABS: Basophils # (A) 0.05 X 10*3/uL (0.00-0.10); Basophils % (A) 0.3 %; Eosinophils # (A) 0.02 X 10*3/uL (0.04-0.35); Eosinophils % (A) 0.1 %; HCT 34.9 % (37.2-46.3); HGB 10.8 d/dL (12.0-15.0); Lymphocytes # (A) 1.91 X 10*3/uL (0.90-5.00); Lymphocytes % (A) 12.9 %; MCH 27.6 pg (27.0-32.0); MCHC 30.9 d/dL (32.0-37.0); MCV 89.3 FL (80.0-97.0); Mean Platelet Volume 10.8 FL (9.5-12.2); Monocytes # (A) 1.24 X 10*3/uL (0.20-1.00); Monocytes % (A) 8.4 %; NRBC Per 100 WBC 0 X 10*3/uL (0.00-0.01); Neutrophils # (A) 11.44 X 10*3/uL (1.80-7.70); Neutrophils % (A) 77.7 %; Platelet Count 358 X 10*3/uL (140-440); RBC 3.91 X 10*6/uL (4.10-5.20); RDW 15.6 % (11.5-14.5); WBC 14.75 X 10*3/uL (4.50-10.00)
[2023-01-02 14:40] LABS: BUN/Creat Ratio 25.33 Ratio (12.00-20.00); Blood Urea Nitrogen 15.2 mg/dL (9.0-27.0); Carbon Dioxide 29.3 mmol/L (21.6-31.8); Chloride 102 mmol/L (96-109); Glucose 104 mg/dL (70-110); Magnesium 2.1 mg/dL (1.5-2.4); Potassium 4.8 mmol/L (3.5-5.5); Sodium 139 mmol/L (135-145)
--- NOTE | 2023-01-04 06:28 | P.PN ---
Subjective Progress Note Date: 01/02/23 - Reason for Consult Consult date: 01/01/23 Medical management, postop right hip arthroplasty - History of Present Illness This is a 77-year-old female who was admitted under orthopedic services underwent right total hip arthroplasty with Dr. Barahona today postop day 0. Patient is evaluated out of postop slightly lethargic although easily arousable currently maintained on 2 L via nasal cannula. Patient reports she follows with Dr. Zavala and underwent presurgical clearance for surgery and reports a past medical history of severe osteoarthritis and denies any other significant past medical history. On exam patient is afebrile currently maintained on 2 L and denies shortness of breath and recommend weaning FiO2. Patient to be given incentive spirometer and encouraged to continue using at least 10 times every hour while awake. Patient will be seen and evaluated by physical therapy in the a.m. and will review and resume home medications. Labs reviewed from presurgical clearance within normal limits. 01/02/2023 Patient is seen and evaluated in follow-up today feeling well status post right total hip arthroplasty. Patient reports has worked with physical therapy and plans for discharging home today. Patient reports pain is currently managed and will continue with pain management per orthopedics. Patient is on room air and denies chest pain or shortness of breath. Patient with incentive spirometer at bedside encouraged to continue using as well as taking at home. Encourage the patient to resume rest of home medications once discharged. Patient is medically stable for discharge today. Review of systems: Constitutional: No reports of fatigue, fever, or chills Cardiovascular: No reports of chest pain or palpitations Respiratory: No reports of shortness of breath or cough GI: No reports of nausea, vomiting, or diarrhea : No reports of dysuria or retention Neurovascular: No reports of weakness or numbness, reports some right hip discomfort although currently managed All medications have been reviewed PHYSICAL EXAMINATION: GENERAL: The patient is alert and oriented x4, Well developed, well nourished. Obese HEENT: Pupils are round and equally reacting to light. EOMI. no scleral icterus. No conjunctival pallor. Normocephalic, atraumatic. No pharyngeal erythema. No thyromegaly. CARDIOVASCULAR: S1 and S2 muffled PULMONARY: diminished breath sounds bilaterally with no wheezing or rhonchi noted. ABDOMEN: soft. Nontender on exam. obese. non-distended, normoactive bowel sounds. No palpable organomegaly. MUSCULOSKELETAL: No joint swelling or deformity. EXTREMITIES: No cyanosis, clubbing, or pedal edema. Right hip surgical dressing is dry and intact with some minimal swelling noted with no significant redness and soft and palpable NEUROLOGICAL: Gross neurological examination did not reveal any focal deficits. Diffuse weakness SKIN: No rashes. Assessment: Status post right total hip arthroplasty Obesity with a BMI of 39.5 History of osteoarthritis GI prophylaxis DVT prophylaxis Full code Plan: Patient is status post right total hip arthroplasty with Dr. Barahona Patient was evaluated by physical therapy and will be going home and has supportive to home Pain management and DVT prophylaxis per orthopedics. Rest of home medications have been resumed Encouraged incentive spirometer use at least 10 times every hour while awake and instructed the patient to take home and continue using Patient is medically stable for discharge home today. Patient instructed to follow-up with primary care provider at her next scheduled appointment We will continue to follow with orthopedics during hospitalization. Thank you kindly for this consultation. The impression and plan of care has been dictated by Ana James, nurse practitioner as directed. Dr. Wilberto MD I have performed a history and examination and MDM of this patient, discussed the same with the dictator, and agree with the dictator's assessment and plan as written ,documented as a scribe. Based on total visit time, I have performed more than 50% of the visit. Any additional findings or plans will be noted. Objective - Vital Signs Vital signs: Vital Signs Temp 98.1 F 01/02/23 06:50 Pulse 73 01/02/23 06:50 Resp 15 01/02/23 06:50 BP 130/78 01/02/23 06:50 Pulse Ox 96 01/02/23 06:50 FiO2 Intake & Output 01/01/23 01/02/23 01/02/23 18:59 06:59 18:59 Intake Total 1081 Output Total 825 Balance 256 Weight 107.8 kg Intake: IV 751 Intake, IV Titration 330 Amount Sodium Chloride 0.9% 1, 280 000 ml @ 70 mls/hr IV . [id number] YULISA Rx#:[id number] ceFAZolin 2 gm In Sodium 50 Chloride 0.9% 50 ml @ 100 mls/hr IVPB Q8H YULISA Rx#: [id number] Output: Urine 625 Estimated Blood Loss 200 Other: Voiding Method Toilet # Voids 1 2 - Labs CBC & Chem 7: 01/02/23 06:32 01/02/23 06:32
== END 2023-01-02 12:14 | disposition home health service (06) ==
LOC: OR 05:39 → 4SSUR 08:22 → OR 01-02 12:14
PROVIDERS: ATTEND Orthopaedic Surgery
DX: M16.11 Unilateral primary osteoarthritis, right hip (principal); E66.9 Obesity, unspecified; Z68.39 Body mass index [BMI] 39.0-39.9, adult; Z79.82 Long term (current) use of aspirin; Z79.899 Other long term (current) drug therapy
CPT/HCPCS: 27130; 97161; 97535; 97165; 64447; 86900; 86901; 80048; 83735; 85025; 86850; 73501; C1776; J2250; J1100; J0690 ×2; J2405; J3010; J2795; J2704; J2371